=== PATIENT | male | born 1960 | race Caucasian/White ===

== ENCOUNTER 2018-05-18 15:29 | Emergency (ER) ==
[2018-05-18 15:34] VITALS: BP 125/87; TEMP 97.2; BMI 32.6
--- NOTE | 2018-05-18 16:11 | DI ---
EXAM: Four views of the left knee. History: Left knee trauma. Findings: No acute fracture or dislocation. Joint spaces are preserved. No abnormal calcifications or radiopaque foreign bodies. Anterior subcutaneous edema is mild. Impression: No acute osseous abnormality
--- NOTE | 2018-05-18 16:32 | ED.PDOC ---
General ED Provider: Dr. ABBIE MARIN Chief Complaint: Knee Pain/Injury Stated Complaint: right knee pain Time Seen by Physician: 15:30 Mode of Arrival: Walk-In Information Source: Patient Exam Limitations: No limitations Nursing and Triage Documentation Reviewed and Agree: Yes Does patient meet sepsis criteria?: No System Inflammatory Response Syndrome: Not Applicable Sepsis Protocol: For patient's 13 years and over: Temp is 96.8 and below OR 101 and greater Pulse >90 BPM Resp >20/minute Acutely Altered Mental Status Are patient's symptoms suggestive of a new infection, such as: -Pneumonia -Skin, Soft Tissue -Endocarditis -UTI -Bone, Joint Infection -Implantable Device -Acute Abdominal Infection -Wound Infection -Meningitis -Blood Stream Catheter Infection -Unknown Musculoskeletal Complaint Exam - Knee Pain Complaint/Exam Mechanism of Injury: Reports: Trauma Onset/Duration: today Symptoms Are: Still present Onset of Pain: Reports: Immediate Initial Severity: Moderate Current Severity: Moderate Location: Reports: Discrete Character: Reports: Aching, Spasmodic Alleviating: Reports: Rest, Position Aggravating: Reports: Movement, Weight bearing, Prolonged standing Associated Signs and Symptoms: Denies: Swelling, Redness, Bruising, Fever, Weakness, Numbness, Tingling Able to Bear Weight: Yes Related History: Reports: Similar episode Septic Arthritis Risk Factors: Reports: None Gout Risk Factors: Reports: None Knee Findings: Present: Swelling Tenderness: Present: Pre-patellar Davis Test Positive: No Vel Test Positive: No Differential Diagnoses: Closed Fracture, Sprain, Strain Review of Systems - Review Of Systems Constitutional: Reports: No symptoms Eyes: Reports: No symptoms Ears, Nose, Mouth, Throat: Reports: No symptoms Respiratory: Reports: No symptoms Cardiac: Reports: No symptoms GI: Reports: No symptoms : Reports: No symptoms Musculoskeletal: Reports: Joint pain (knee ) Skin: Reports: No symptoms Neurological: Reports: No symptoms Endocrine: Reports: No symptoms Hematologic/Lymphatic: Reports: No symptoms All Other Systems: Reviewed and Negative Past Medical History - Past Medical History Previously Healthy: Yes Endocrine: Reports: None Cardiovascular: Reports: None Respiratory: Reports: None Hematological: Reports: None Gastrointestinal: Reports: None Genitourinary: Reports: None Neuro/Psych: Reports: None Musculoskeletal: Reports: None Cancer: Reports: None - Surgical History General Surgical History: Reports: None - Family History Family History: Reports: None - Social History Smoking Status: Former smoker Hx Substance Use: No Alcohol Screening: Occasionally Physical Exam - Physical Exam Appearance: Well-appearing, No pain distress, Well-nourished Eyes: MYRTLE, EOMI, Conjunctiva clear ENT: Ears normal, Nose normal, Oropharynx normal Respiratory: Airway patent, Breath sounds clear, Breath sounds equal, Respirations nonlabored Cardiovascular: RRR, Pulses normal, No rub, No murmur GI/: Soft, Nontender, No masses, Bowel sounds normal, No Organomegaly Musculoskeletal: Limited ROM (left knee pain) Skin: Warm, Dry, Normal color Neurological: Sensation intact, Motor intact, Reflexes intact, Cranial nerves intact, Alert, Oriented Psychiatric: Affect appropriate, Mood appropriate Interpretation - Radiology Interpretation Radiology Interpretation By: Radiologist Radiology Results: No acute changes Critical Care Note - Critical Care Note Total Time (mins): 0 Course - Course Orders, Labs, Meds: Orders Category Date Time Status KNEE, LEFT 4 VIEWS Stat RADS 05/18/18 15:38 Completed Vital Signs: Temp Pulse Resp BP Pulse Ox 05/18/18 15:30 97.2 F L 94 H 18 125/87 94 L Departure - Departure Time of Disposition: 16:32 Disposition: HOME SELF-CARE Discharge Problem: Knee pain, Injury of knee Instructions: Knee Pain (ED) Condition: Good Pt referred to PMD for follow-up: Yes IPMP verified?: No Additional Instructions: Please call your Family Physician as soon as possible to schedule a follow-up appointment. Prescriptions: Hydrocodone/Acetaminophen [[place] 10-325 Tablet] 1 each PO Q8HR #10 tablet Allergies/Adverse Reactions: Allergies No Known Allergies Allergy (Unverified 05/18/18 15:36) Home Medications: Ambulatory Orders Hydrocodone/Acetaminophen [[place] 10-325 Tablet] 1 each PO Q8HR #10 tablet
== END 2018-05-18 16:56 | disposition home or self-care (01) ==
LOC: ED 15:29
DX: M25.562 Pain in left knee (principal)
CPT/HCPCS: 99283